=== PATIENT | male | born 1980 | race Caucasian/White ===

== ENCOUNTER 2017-11-11 09:17 | Emergency (ER) | payer MEDICAID, OTHER ==
[~2017-11-11] VITALS: Ht 180.3 cm; Wt 85.8 kg
[~2017-11-11 09:17] MED LIST: TRAM50TA2 PO
[2017-11-11 09:22] VITALS: BP 154/115
[2017-11-11] MEDS ORDERED: naphazoline/pheniramine eye 1 DROP BOTTLE LEFTEYE STA (09:36)
[2017-11-11] MEDS ORDERED: proparacaine 0.5% ophthalmic drops 15ml LEFTEYE ONE (09:40)
[2017-11-11] MEDS ORDERED: methylPREDNISolone sod succ 125mg/2ml vial IM ONE (09:40)
[2017-11-11] MEDS ORDERED: erythromycin ophthalmic ointment 1gm tube LEFTEYE ONE (09:40)
[2017-11-11] MEDS ORDERED: ERYT1OIN6 LEFTEYE (10:05)
[2017-11-11] MEDS ORDERED: ketorolac trometh inj. 60 MG/2 ML VIAL IM ONE (10:10)
== END 2017-11-11 10:23 | disposition home or self-care (01) ==
LOC: ER 09:18
DX: H11.422 Conjunctival edema, left eye (principal)
CPT/HCPCS: 96372; 99284; J1885; J2930

== ENCOUNTER 2018-07-05 19:56 | Emergency (ER) | payer MEDICAID ==
[~2018-07-05] VITALS: Ht 180.3 cm; Wt 70.2 kg
[2018-07-05] MEDS ORDERED: LIDOcaine 1% w/epiNEPHrine 1:200,000 30ml vial IM ONE (21:50)
--- NOTE | 2018-07-05 23:01 | NUR ---
PT WAS ASKED TO GIVE URINE SAMPLE, HE WENT INTO THE BATHROOM AND CAME OUT WITH WATER, SAMPLE HAD, NO COLOR, NO SMELL, PT WAS QUESTIONED TO WHY HE GAVE A WATER SAMPLE, HE STATES THAT HE HAS USED IV METH AND HEROIN
[2018-07-05 23:09] LABS: BASOPHILS % (AUTO) 0.3 % (0-1); EOSINOPHILS % (AUTO) 0.3 % (0-6); HEMATOCRIT 40.9 % (42.0-52.0); HEMOGLOBIN 13.8 g/dl (14.0-17.9); LYMPHOCYTES # (AUTO) 1.6 X10'3 (1.1-4.8); LYMPHOCYTES % (AUTO) 13.3 % (21-51); MEAN CORPUSCULAR HEMOGLOBIN 31.3 PG (27.0-31.0); MEAN CORPUSCULAR HGB CONC 33.8 g/dL (33.0-36.5); MEAN CORPUSCULAR VOLUME 92.6 FL (78-98); MEAN PLATELET VOLUME 8.4 FL (7.4-10.4); MONOCYTES # (AUTO) 1.3 X10'3 (0-0.9); MONOCYTES % (AUTO) 10.6 % (2-12); NEUTROPHILS # (AUTO) 9.4 X10'3 (1.8-7.7); NEUTROPHILS % (AUTO) 75.5 % (42-75); PLATELET COUNT 254 X10'3 (140-440); RED BLOOD COUNT 4.42 X10'6 (4.70-6.10); WHITE BLOOD COUNT 12.4 X10'3 (4.5-11.0)
[2018-07-05 23:11] LABS: ALANINE AMINOTRANSFERASE 30 U/L (12-78); ALBUMIN 3.8 G/DL (3.4-5.0); ALBUMIN/GLOBULIN RATIO 1.1 (1.1-1.5); ALKALINE PHOSPHATASE 102 IU/L (46-116); ANION GAP 4 (8-16); ASPARTATE AMINO TRANSFERASE 22 U/L (10-37); BILIRUBIN,TOTAL 0.9 MG/DL (0.1-1.0); BLOOD UREA NITROGEN 13 MG/DL (7-18); CALCIUM 8.9 MG/DL (8.5-10.1); CHLORIDE 99 MMOL/L (99-107); CREATININE 1.18 MG/DL (0.60-1.10); GLUCOSE 112 MG/DL (70-104); POTASSIUM 3.7 MMOL/L (3.5-5.1); SODIUM 135 MMOL/L (135-145); TOTAL CARBON DIOXIDE 31.6 MMOL/L (24-32); TOTAL PROTEIN 7.2 G/DL (6.4-8.2); eGFR 68 ML/MIN
[2018-07-05] MEDS ORDERED: SULF1TAB49 PO (23:32)
[2018-07-05] MEDS ORDERED: CEPH-572 PO (23:32)
[2018-07-05] MEDS ORDERED: ibuprofen tablet 400 MG TABLET PO ONE (23:40)
--- NOTE | 2018-07-05 23:43 | NUR ---
GABE VILLA INFORMED OF ONGOING IVDA OF "HEROIN AND CRANK"; LAST USED THIS AM; USING FOR 2 YEARS
[2018-07-06 00:21] VITALS: BP 128/70
== END 2018-07-06 00:23 | disposition home or self-care (01) ==
LOC: ER 19:58
DX: L03.113 Cellulitis of right upper limb (principal); Z79.899 Other long term (current) drug therapy
CPT/HCPCS: 10060; 36415; 80053; 85025; 99284; J3490

== ENCOUNTER 2020-06-29 11:47 | Emergency (ER) | payer MEDICAID ==
[~2020-06-29] VITALS: Ht 172.7 cm; Wt 87.0 kg
[~2020-06-29 11:47] MED LIST changes: +LIDOcaine 1% W/epiNEPHrine 1:100,000 20ml vial ONE
[2020-06-29] MEDS ORDERED: DOXYCYCLINE 100MG CAPSULE PO STA (14:01)
[2020-06-29] MEDS ORDERED: ondansetron 4mg rapidly disintigrating tab PO ONE (14:05)
[2020-06-29] MEDS ORDERED: cephalexin 250mg capsule PO ONE (14:05)
[2020-06-29] MEDS ORDERED: HYDROcodone/acetaminophen 5mg/325mg tablet PO ONE (14:05)
[2020-06-29] MEDS ORDERED: ONDA4TAB6 PO (14:12)
[2020-06-29] MEDS ORDERED: CEPH250T PO (14:12)
[2020-06-29] MEDS ORDERED: DOXY100C77 PO (14:12)
[2020-06-29 15:13] VITALS: BP 120/75
== END 2020-06-29 15:14 | disposition home or self-care (01) ==
LOC: ER 11:48
DX: L02.413 Cutaneous abscess of right upper limb (principal); I10 Essential (primary) hypertension; F17.200 Nicotine dependence, unspecified, uncomplicated; F12.90 Cannabis use, unspecified, uncomplicated; Z79.899 Other long term (current) drug therapy
CPT/HCPCS: 10060; 99284